=== PATIENT | female | born 1965 | race Caucasian/White ===

== ENCOUNTER 2018-07-14 08:40 | Outpatient (CLI) | payer OTHER | END 2018-07-14 08:47 | disposition home or self-care (01) | LOC: LAB 08:40 | DX: E16.1 Other hypoglycemia (principal); R91.8 Other nonspecific abnormal finding of lung field; D50.8 Other iron deficiency anemias; D51.8 Other vitamin B12 deficiency anemias; J44.9 Chronic obstructive pulmonary disease, unspecified; D51.1 Vitamin B12 deficiency anemia due to selective vitamin B12 malabsorption with proteinuria; D51.0 Vitamin B12 deficiency anemia due to intrinsic factor deficiency; E55.9 Vitamin D deficiency, unspecified; K90.89 Other intestinal malabsorption; E06.3 Autoimmune thyroiditis; E03.8 Other specified hypothyroidism; R97.0 Elevated carcinoembryonic antigen [CEA]; I10 Essential (primary) hypertension ==

== ENCOUNTER 2018-08-02 14:30 | Outpatient (CLI) | payer OTHER | END 2018-08-02 14:36 | disposition home or self-care (01) | LOC: SONOGRAMA 14:30 | DX: R91.8 Other nonspecific abnormal finding of lung field (principal); J44.9 Chronic obstructive pulmonary disease, unspecified; E03.8 Other specified hypothyroidism; E06.3 Autoimmune thyroiditis; E16.1 Other hypoglycemia ==

== ENCOUNTER 2018-12-01 07:20 | Outpatient (CLI) | payer OTHER | END 2018-12-01 07:39 | disposition home or self-care (01) | LOC: LAB 07:20 | DX: D51.1 Vitamin B12 deficiency anemia due to selective vitamin B12 malabsorption with proteinuria (principal); R91.8 Other nonspecific abnormal finding of lung field; J44.9 Chronic obstructive pulmonary disease, unspecified; E16.2 Hypoglycemia, unspecified; E04.8 Other specified nontoxic goiter; D50.8 Other iron deficiency anemias; I10 Essential (primary) hypertension; E03.8 Other specified hypothyroidism ==

== ENCOUNTER 2019-02-26 11:05 | Outpatient (CLI) | payer OTHER | END 2019-02-26 11:10 | disposition home or self-care (01) | LOC: SONOGRAMA 11:05 | DX: D51.1 Vitamin B12 deficiency anemia due to selective vitamin B12 malabsorption with proteinuria (principal); R91.8 Other nonspecific abnormal finding of lung field; J44.9 Chronic obstructive pulmonary disease, unspecified; E16.2 Hypoglycemia, unspecified; E04.8 Other specified nontoxic goiter; E03.8 Other specified hypothyroidism ==

== ENCOUNTER 2019-03-09 07:31 | Outpatient (CLI) | payer OTHER | END 2019-03-09 08:23 | disposition home or self-care (01) | LOC: LAB 07:31 | DX: E04.8 Other specified nontoxic goiter (principal); D51.1 Vitamin B12 deficiency anemia due to selective vitamin B12 malabsorption with proteinuria; R91.8 Other nonspecific abnormal finding of lung field; J44.9 Chronic obstructive pulmonary disease, unspecified; E16.2 Hypoglycemia, unspecified; D50.8 Other iron deficiency anemias; D51.8 Other vitamin B12 deficiency anemias; I10 Essential (primary) hypertension; E03.8 Other specified hypothyroidism; K90.89 Other intestinal malabsorption ==

== ENCOUNTER 2019-07-02 07:08 | Outpatient (CLI) | payer OTHER | END 2019-07-02 07:38 | disposition home or self-care (01) | LOC: LAB 07:08 | DX: D51.1 Vitamin B12 deficiency anemia due to selective vitamin B12 malabsorption with proteinuria (principal); R91.8 Other nonspecific abnormal finding of lung field; J44.9 Chronic obstructive pulmonary disease, unspecified; E16.2 Hypoglycemia, unspecified; E04.8 Other specified nontoxic goiter; D50.8 Other iron deficiency anemias; D51.8 Other vitamin B12 deficiency anemias; I10 Essential (primary) hypertension; E55.9 Vitamin D deficiency, unspecified; K90.89 Other intestinal malabsorption; R97.0 Elevated carcinoembryonic antigen [CEA] ==

== ENCOUNTER 2020-06-02 09:05 | Emergency (ER) | payer OTHER ==
[~2020-06-02] VITALS: Ht 167.6 cm; Wt 54.0 kg
[2020-06-02] MEDS ORDERED: TRANXENE T-TAB7.5 MG PO (09:21)
[2020-06-02] MEDS ORDERED: PRILOSEC OTC20 MG PO (09:21)
[2020-06-02] MEDS ORDERED: PROBIOTIC1 EAC2 PO (09:22)
[2020-06-02] MEDS ORDERED: PEPCID20 MG PO (17:36)
[2020-06-02] MEDS ORDERED: ACETAMINOPHEN650 M2 PO (17:36)
[2020-06-02] MEDS ORDERED: INTESTINEX680 M1 PO (17:36)
== END 2020-06-02 20:31 | disposition home or self-care (01) ==
LOC: ER 09:05
DX: R10.32 Left lower quadrant pain (principal); Z03.818 Encounter for observation for suspected exposure to other biological agents ruled out

== ENCOUNTER 2020-06-19 06:33 | Outpatient (CLI) | payer OTHER ==
[~2020-06-19 06:33] MED LIST: ACETAMINOPHEN650 M2 PO; INTESTINEX680 M1 PO; PEPCID20 MG PO; PRILOSEC OTC20 MG PO; PROBIOTIC1 EAC2 PO; TRANXENE T-TAB7.5 MG PO
== END 2020-06-19 06:40 | disposition home or self-care (01) ==
LOC: LAB 06:33
PROVIDERS: ATTEND Internal Medicine Hematology & Oncology
DX: D50.8 Other iron deficiency anemias (principal); I10 Essential (primary) hypertension; D51.8 Other vitamin B12 deficiency anemias; E55.9 Vitamin D deficiency, unspecified; E03.8 Other specified hypothyroidism; R97.0 Elevated carcinoembryonic antigen [CEA]; R97.8 Other abnormal tumor markers; D51.1 Vitamin B12 deficiency anemia due to selective vitamin B12 malabsorption with proteinuria; R91.8 Other nonspecific abnormal finding of lung field; J44.9 Chronic obstructive pulmonary disease, unspecified; E16.2 Hypoglycemia, unspecified; E04.8 Other specified nontoxic goiter; D13.4 Benign neoplasm of liver; D13.1 Benign neoplasm of stomach; R10.30 Lower abdominal pain, unspecified; R19.5 Other fecal abnormalities; Z12.11 Encounter for screening for malignant neoplasm of colon

== ENCOUNTER 2020-06-27 07:37 | Outpatient (CLI) | payer OTHER | END 2020-06-27 07:47 | disposition home or self-care (01) | LOC: LAB 07:37 | PROVIDERS: ATTEND Internal Medicine Gastroenterology | DX: D51.8 Other vitamin B12 deficiency anemias (principal); D13.4 Benign neoplasm of liver; D13.1 Benign neoplasm of stomach; Z12.11 Encounter for screening for malignant neoplasm of colon; R19.5 Other fecal abnormalities; R10.30 Lower abdominal pain, unspecified ==

== ENCOUNTER 2020-07-13 07:17 | Outpatient (CLI) | payer OTHER | END 2020-07-13 07:28 | disposition home or self-care (01) | LOC: MRI 07:17 | PROVIDERS: ATTEND Internal Medicine Gastroenterology | DX: D18.09 Hemangioma of other sites (principal); D13.4 Benign neoplasm of liver; R10.30 Lower abdominal pain, unspecified | CPT/HCPCS: 74183 ==

== ENCOUNTER 2020-08-17 08:09 | Outpatient (CLI) | payer OTHER | END 2020-08-17 08:35 | disposition home or self-care (01) | LOC: TOM 08:09 | PROVIDERS: ATTEND Internal Medicine Gastroenterology | DX: K57.90 Diverticulosis of intestine, part unspecified, without perforation or abscess without bleeding (principal); K56.600 Partial intestinal obstruction, unspecified as to cause; R19.5 Other fecal abnormalities ==

== ENCOUNTER 2021-05-08 07:39 | Outpatient (CLI) | payer OTHER | END 2021-05-08 07:45 | disposition home or self-care (01) | LOC: LAB 07:39 | PROVIDERS: ATTEND Internal Medicine Hematology & Oncology | DX: E78.2 Mixed hyperlipidemia (principal); D50.8 Other iron deficiency anemias; R79.89 Other specified abnormal findings of blood chemistry; I10 Essential (primary) hypertension; R74.02 Elevation of levels of lactic acid dehydrogenase [LDH]; D51.8 Other vitamin B12 deficiency anemias; K76.89 Other specified diseases of liver; R97.0 Elevated carcinoembryonic antigen [CEA]; R97.8 Other abnormal tumor markers; E03.8 Other specified hypothyroidism; D51.1 Vitamin B12 deficiency anemia due to selective vitamin B12 malabsorption with proteinuria; R91.8 Other nonspecific abnormal finding of lung field; J44.9 Chronic obstructive pulmonary disease, unspecified; E04.9 Nontoxic goiter, unspecified; K82.8 Other specified diseases of gallbladder ==

== ENCOUNTER 2021-05-27 07:09 | Outpatient (CLI) | payer OTHER | END 2021-05-27 07:14 | disposition home or self-care (01) | LOC: NUCLEAR 07:09 | PROVIDERS: ATTEND Internal Medicine Hematology & Oncology | DX: K82.9 Disease of gallbladder, unspecified (principal); R91.8 Other nonspecific abnormal finding of lung field; J44.9 Chronic obstructive pulmonary disease, unspecified | CPT/HCPCS: 78226; A9537; J2805 ==

== ENCOUNTER 2021-05-27 11:44 | Outpatient (CLI) | payer OTHER | END 2021-05-27 11:55 | disposition home or self-care (01) | LOC: MAMO-SONO 11:44 | PROVIDERS: ATTEND Internal Medicine Hematology & Oncology | DX: N63.10 Unspecified lump in the right breast, unspecified quadrant (principal); Z12.31 Encounter for screening mammogram for malignant neoplasm of breast; R91.8 Other nonspecific abnormal finding of lung field; J44.9 Chronic obstructive pulmonary disease, unspecified; E16.2 Hypoglycemia, unspecified; D51.1 Vitamin B12 deficiency anemia due to selective vitamin B12 malabsorption with proteinuria; E04.8 Other specified nontoxic goiter; K82.8 Other specified diseases of gallbladder ==

== ENCOUNTER 2021-12-15 06:39 | Outpatient (CLI) | payer OTHER | END 2021-12-15 07:00 | disposition home or self-care (01) | LOC: LAB 06:39 | DX: D51.0 Vitamin B12 deficiency anemia due to intrinsic factor deficiency (principal); E55.9 Vitamin D deficiency, unspecified; G62.9 Polyneuropathy, unspecified; E03.9 Hypothyroidism, unspecified ==

== ENCOUNTER 2021-12-15 07:36 | Outpatient (CLI) | payer OTHER | END 2021-12-15 07:37 | disposition home or self-care (01) | LOC: NUCLEAR 07:36 | PROVIDERS: ATTEND Internal Medicine Geriatric Medicine | DX: I87.2 Venous insufficiency (chronic) (peripheral) (principal); M54.16 Radiculopathy, lumbar region; Z88.0 Allergy status to penicillin; Z88.8 Allergy status to other drugs, medicaments and biological substances ==

== ENCOUNTER 2021-12-15 10:01 | Outpatient (CLI) | payer OTHER | END 2021-12-15 10:36 | disposition home or self-care (01) | LOC: MRI 10:01 | PROVIDERS: ATTEND Internal Medicine Geriatric Medicine | DX: M54.16 Radiculopathy, lumbar region (principal); I87.2 Venous insufficiency (chronic) (peripheral) | CPT/HCPCS: 72148; 72195 ==

== ENCOUNTER 2021-12-24 13:36 | Outpatient (CLI) | payer OTHER | END 2021-12-24 13:41 | disposition home or self-care (01) | LOC: LAB 13:36 | PROVIDERS: ATTEND Internal Medicine Geriatric Medicine | DX: D51.0 Vitamin B12 deficiency anemia due to intrinsic factor deficiency (principal); E55.9 Vitamin D deficiency, unspecified; G62.9 Polyneuropathy, unspecified; E03.9 Hypothyroidism, unspecified ==

== ENCOUNTER 2022-04-19 06:32 | Outpatient (CLI) | payer OTHER | END 2022-04-19 06:33 | disposition home or self-care (01) | LOC: LAB 06:32 | PROVIDERS: ATTEND Internal Medicine Geriatric Medicine | DX: E55.9 Vitamin D deficiency, unspecified (principal); D64.9 Anemia, unspecified; R73.9 Hyperglycemia, unspecified ==

== ENCOUNTER 2022-07-28 06:43 | Outpatient (CLI) | payer OTHER | END 2022-07-28 06:50 | disposition home or self-care (01) | LOC: LAB 06:43 | PROVIDERS: ATTEND Internal Medicine Geriatric Medicine | DX: E55.9 Vitamin D deficiency, unspecified (principal); E53.8 Deficiency of other specified B group vitamins; E75.10 Unspecified gangliosidosis ==

== ENCOUNTER → 2023-03-27 07:12 | Outpatient (CLI) | payer OTHER | END | disposition home or self-care (01) | LOC: LAB 07:12 | PROVIDERS: ATTEND Internal Medicine Cardiovascular Disease | DX: I10 Essential (primary) hypertension (principal) ==

== ENCOUNTER 2023-10-18 13:44 | Outpatient (CLI) | payer OTHER | END 2023-10-18 13:53 | disposition home or self-care (01) | LOC: RAD 13:44 | PROVIDERS: ATTEND Orthopaedic Surgery | DX: S82.025A Nondisplaced longitudinal fracture of left patella, initial encounter for closed fracture (principal) ==

== ENCOUNTER 2023-10-23 10:30 | Outpatient (CLI) | payer OTHER | END 2023-10-23 10:31 | disposition home or self-care (01) | LOC: NUCLEAR 10:30 | PROVIDERS: ATTEND Orthopaedic Surgery | DX: S82.025D Nondisplaced longitudinal fracture of left patella, subsequent encounter for closed fracture with routine healing (principal) ==

== ENCOUNTER 2024-02-15 07:04 | Outpatient (CLI) | payer OTHER ==
[2024-02-15 08:03] LABS: PH,URINE 6.5 (5.0-8.0); URINE APPEARANCE Clear; URINE BILIRRUBIN Negative (NEGATIVE); URINE BLOOD Negative; URINE COLOR Yellow; URINE GLUCOSE Negative (NEGATIVE); URINE LEUKOCYTE Negative; URINE NITRATE Negative; URINE PROTEIN Negative (NEGATIVE); URINE UROBILINOGEN 0.2 E.U./dl
[2024-02-15 08:15] LABS: HEMOGLOBIN 13.5 g/dL (12.0-15.00); MEAN CORPUSCULAR HEMOGLOBIN 31.7 pg (27.00-32.0); MEAN CORPUSCULAR HGB CONC 34.5 g/dl (32.0-36.0); PLATELET COUNT 327 K/uL (150-450); RED BLOOD COUNT 4.24 M/uL (4.00-6.00); RED CELL DISTRIBUTION WIDTH 13.1 % (11.5-14.5)
[2024-02-15 08:19] LABS: URINE BACTERIA 40.3 uL (0.0-1933); URINE EPITHELIAL CELLS 3.5 uL (0.0-38.8); URINE RBC 3.9 uL (0.0-20.8)
[2024-02-15 08:20] LABS: URINE WBC 1.5 uL (0.0-23.2)
[2024-02-15 08:28] LABS: INR 1.02; PARTIAL THROMBOPLASTIN TIME 32.6 SECONDS (22.0-34.0); PROTHROMBIN TIME 10.7 SECONDS (9.0-11.5)
[2024-02-15 08:54] LABS: ALBUMIN 3.8 gm/dL (3.4-5.0); BILIRUBIN TOTAL 0.53 mg/dL (0.3-1.2); CALCIUM 9.5 mg/dL (8.5-10.1); CHOL HDL RATIO 2.9 (0-5.0); CREATININE SERUM 0.77 mg/dL (0.55-1.02); GFR 76.73; GLOBULINA 3.6 G/DL (2.4-3.5); POTASSIUM 4.52 mEq/L (3.5-5.1); T4 FREE 1.16 NG/ML (0.76-1.46); TOTAL PROTEIN 7.4 gm/dL (6.4-8.2); TSH 2.28 uIU/mL (0.358-3.74)
[2024-02-15 12:31] LABS: FOLIC ACID 15.26 ng/ml (4.78-20); VITAMIN D3 25 HYDROXY 26.45 ng/ml (30-120)
[2024-02-17 15:07] LABS: ANTI SCLERODERMA 70 < 0.2 AI (0.0-0.9)
== END 2024-02-15 07:05 | disposition home or self-care (01) ==
LOC: LAB 07:04
PROVIDERS: ATTEND Internal Medicine Geriatric Medicine
DX: D75.9 Disease of blood and blood-forming organs, unspecified (principal); L85.3 Xerosis cutis; M34.9 Systemic sclerosis, unspecified; I11.9 Hypertensive heart disease without heart failure; E78.2 Mixed hyperlipidemia; E11.9 Type 2 diabetes mellitus without complications; E03.9 Hypothyroidism, unspecified; E55.9 Vitamin D deficiency, unspecified

== ENCOUNTER 2024-03-05 08:52 | Outpatient (CLI) | payer OTHER | END 2024-03-05 09:09 | disposition home or self-care (01) | LOC: MAMO-SONO 08:52 | PROVIDERS: ATTEND Internal Medicine Geriatric Medicine | DX: N62 Hypertrophy of breast (principal); Z98.82 Breast implant status; Z12.39 Encounter for other screening for malignant neoplasm of breast ==

== ENCOUNTER → 2024-03-08 13:01 | Outpatient (CLI) | payer OTHER | END | disposition home or self-care (01) | LOC: NUCLEAR 02-29 13:45 | PROVIDERS: ATTEND Internal Medicine Geriatric Medicine | DX: Z13.820 Encounter for screening for osteoporosis (principal); M81.0 Age-related osteoporosis without current pathological fracture ==